=== PATIENT | female | born 1935 | race Caucasian/White ===

== ENCOUNTER 2018-09-12 15:02 | Observation (INO) | payer MEDICARE, OTHER ==
[~2018-09-12] VITALS: Ht 144.8 cm; Wt 72.8 kg
--- NOTE | 2018-09-12 15:26 | ERD ---
ER Documentation Chief Complaint Chief Complaint Right Hip pain HPI The patient is a 83-year-old female, presenting to the ER because of right hip pain after she reached over the counter in her kitchen. She felt right hip pain, similar to the time that she dislocated her hip. She denies head trauma, neck pain, chest pain, dyspnea, abdominal pain, vomiting, dizzy, diarrhea. She does not smoke nor drink Medical history: CAD, atrial fibrillation, dyslipidemia, hypertension Past surgical history: Bilateral hip arthroplasty, pacemaker, right knee arthroplasty ROS All systems reviewed and are negative except as per history of present illness. Medications Home Meds Reported Medications Calcium Citrate* (Citracal*) 950 Mg Tab, 950 MG PO BID, TAB 09/12/18 Cyanocobalamin* (Vitamin B-12*) 100 Mcg Tablet, 100 MCG PO DAILY, TAB 09/12/18 Cholecalciferol* (Vitamin D3*) 1,000 Unit Tablet, 1000 UNIT PO DAILY, TAB 09/12/18 Estradiol* (Estrace* Vag) 0.01%-42.5GM Vaginal Cream..g., 1 APPLIC VAG MON AND FRI, TUB 09/12/18 Metoprolol Succinate* (Toprol XL*) 25 Mg Tab.sr.24h, 25 MG PO BID, #30 TAB 09/12/18 Digoxin* (Digitek*) 125 Mcg Tablet, 0.125 MG PO DAILY, TAB 09/12/18 Atorvastatin* (Atorvastatin*) 40 Mg Tablet, 40 MG PO ALTERNATING DAYS, #30 TAB 09/12/18 Atorvastatin Calcium* (Atorvastatin Calcium*) 20 Mg Tablet, 20 MG PO ALTERNATING DAYS, #30 TAB 09/12/18 Irbesartan* (Irbesartan*) 75 Mg Tablet, 75 MG PO DAILY, TAB 09/12/18 Warfarin Sodium* (Coumadin*) 2.5 Mg Tablet, 2.5 MG PO SUN,E,WED,THUR,SAT, TAB 09/12/18 Warfarin Sodium* (Coumadin*) 2 Mg Tablet, 2 MG PO MON AND FRI, TAB 09/12/18 Allergies Allergies: Coded Allergies: Penicillins (Verified Allergy, Mild, 09/12/18) Sulfa (Sulfonamide Antibiotics) (Verified Allergy, Mild, 09/12/18) Physical Exam Vitals Vital Signs Date Temp Pulse Resp B/P (MAP) Pulse Ox O2 O2 Flow FiO2 Time Delivery Rate 09/12/18 74 20 185/55 99 Room Air 18:53 (98) 09/12/18 98.2 71 22 162/56 100 Nasal 4.0 17:45 (91) Cannula 09/12/18 98.2 71 20 168/79 100 Nasal 4.0 17:42 (108) Cannula 09/12/18 98.2 70 21 197/79 100 Nasal 4.0 17:39 (118) Cannula 09/12/18 98.2 74 16 187/68 100 Nasal 4.0 17:36 (107) Cannula 09/12/18 100 4.0 17:33 09/12/18 98.2 75 18 187/60 100 Nasal 4.0 17:33 (102) Cannula 09/12/18 98.0 75 20 120/89 98 15:26 (99) Physical Exam Const: No acute distress. Head: Atraumatic. Eyes: Normal Conjunctiva. ENT: Normal External Ears, Nose and Mouth. Neck: Full range of motion. No meningismus. Resp: Clear to auscultation bilaterally. Cardio: Regular rate and rhythm. Abd: Soft, non distended, normal bowel sounds, non tender. Skin: No petechiae or rashes. Back: No midline or flank tenderness. Ext: Moderate right hip tenderness, no skin violation, palpable distal pulses Neur: Awake and alert. No focal deficit Psych: Normal Mood and Affect. Results 24 hrs Current Medications Medications Dose Sig/Fazal Start Time Status Last (Trade) Ordered Route PRN Stop Time Admin Dose Reason Admin Propofol 200 mg ONCE ONCE 09/12/18 DC (Diprivan) IV 17:30 09/12/18 17:31 Procedures/[place] [address] Radiology Main Line: [phone] DIAGNOSTIC IMAGING REPORT Patient: SAMANTHA CARRASCO : 1935 Age: 83 Sex: F MR #: [id number] DOS: 09/12/181803 Ordering MD: SHAYNA HARLEY MD Location: E/R Room/Bed: PROCEDURE: XR Right Hip. CLINICAL INDICATION: Right hip pain. Postop. TECHNIQUE: Two views. Frontal and lateral. COMPARISON: Prior study done earlier the same day. FINDINGS: There is a right hip total arthroplasty. Previously noted superior dislocation of the femoral head component has been satisfactorily reduced. The soft tissues are normal. IMPRESSION: 1. Previously noted dislocation has been satisfactorily reduced. RPTAT: QQ .Ed Shearer MD, Date Time Electronically viewed and signed by .Ed Shearer MD, on 09/12/2018 18:30 .R/ CC: SHAYNA HARLEY MD [id number] [place] [address] Radiology Main Line: [phone] DIAGNOSTIC IMAGING REPORT Patient: SAMANTHA CARRASCO : 1935 Age: 83 Sex: F MR #: [id number] DOS: 09/12/18 1536 Ordering MD: SHAYNA HARLEY MD Location: E/R Room/Bed: PROCEDURE: XR Hip. CLINICAL INDICATION: pain TECHNIQUE: AP and frog lateral views of the right hip were performed. COMPARISON: CR HIP 02/12/2015 FINDINGS: Superior dislocation of the femoral component of the hip arthroplasty relative to the acetabular cup. No periprosthetic fracture detected. Moderate soft tissue swelling. Diffuse osteopenia. IMPRESSION: Superior dislocation of the femoral component relative to the acetabular cup of right hip arthroplasty. RPTAT:AAJJ Physician Sol Date Time Electronically viewed and signed by Physician Sol on 09/12/2018 16:47 RF/ CC: SHAYNA HARLEY MD [id number] MEDICAL MAKING DECISION: The patient is an 83-year-old female, presenting with recurrent dislocation of the right hip, it was reduced with any difficulty Hip X-ray 2V Interpreted by me: Bones: Rt hip Joints: Dislocation of the hip joint Foreign body: None Procedural Sedation: Pre-assessment performed. See preceding complete history and physical for details. Time out performed. See sedation documentation for details. Medication(s): Propofol 20 mv x3 about 2-3 min apart Complications: No hypoxic or apneic events Recovered without incident. Greater than 15 minutes of face to face time included in sedation and recovery. Hip Reduction by me: Anesthesia: Propofol Location: Rt hip Technique: ain Omar Results: Religious of normal anatomic positioning and tactile click Compl: Neurovascularly intact post procedure. Post-reduction X-ray elbow 2V Interpreted by me: Bones: Right hip Joints: Relocation of previously noted dislocation of the humeroulnar joint Foreign body: None Departure Diagnosis: Primary Impression: Hip dislocation, right Condition: Good Comments She was treated with a knee immobilizer I discussed the findings with the patient. I advised the patient to follow-up with the orthopedist physician in about 1-2 days, sooner if needed and return if any concern. Disclaimer: Inadvertent spelling and grammatical errors are likely due to EHR/dictation software use and do not reflect on the overall quality of patient care. Also, please note that the electronic time recorded on this note does not necessarily reflect the actual time of the patient encounter. SHAYNA HARLEY MD Sep 12, 2018 15:26
[2018-09-12] MEDS ORDERED: WARF2TAB PO (16:33)
[2018-09-12] MEDS ORDERED: WARF2.5T PO (16:33)
[2018-09-12] MEDS ORDERED: IRBE75TA8 PO (16:34)
[2018-09-12] MEDS ORDERED: ATOR40TA68 PO (16:35)
[2018-09-12] MEDS ORDERED: ATOR20TA38 PO (16:35)
[2018-09-12] MEDS ORDERED: DIGO125T PO (16:35)
[2018-09-12] MEDS ORDERED: EST42.5C VAG (16:36)
[2018-09-12] MEDS ORDERED: METO-335 PO (16:36)
[2018-09-12] MEDS ORDERED: CYAN100T PO (16:37)
[2018-09-12] MEDS ORDERED: CHOL100062 PO (16:37)
[2018-09-12] MEDS ORDERED: CITRACAL PO (16:37)
[2018-09-12] MEDS ORDERED: PROPOFOL 200 MG INJ IV ONE (17:30)
[2018-09-12] MEDS ORDERED: ACET325T33 PO (20:17)
[2018-09-12] MEDS ORDERED: METOPROLOL (XL) 25 MG TAB PO ONE (20:30)
[2018-09-12] MEDS ORDERED: NICARDipine HCL 30 MG CAPSULE PO ONE (21:30)
[2018-09-12] MEDS ORDERED: ONDANSETRON 4 MG INJ IV PRN (23:00)
[2018-09-12] MEDS ORDERED: ACETAMINOPHEN 325 MG TAB PO PRN (23:00)
--- NOTE | 2018-09-12 23:52 | HP ---
Date/Time of Note Date/Time of Note DATE: 09/12/18 TIME: 23:52 Assessment/Plan VTE Prophylaxis Pharmacological prophylaxis: heparin Lines/Catheters IV Catheter Type (from Nrsg): Peripheral IV Assessment/Plan Assessment/Plan 1. Right hip dislocation, status post fall: Successfully reduced in ER. Patient with history of bilateral hip replacement and right knee surgery -PT eval -Pain meds as needed 2. Hypertensive urgency: BP better controlled -Adjust antihypertensives as needed 3. Atrial fibrillation: Rate controlled -Patient on beta-rina, digoxin and Coumadin at home 4. Status post pacemaker: No acute issue 5. Chronic left shoulder pain. Patient with a history of arthritis. Follow-up x-ray of the shoulder Result Diagram: 09/12/18214109/12/182141 Results 24hrs Laboratory Tests Test 09/12/18 21:42 White Blood Count 10.2 Red Blood Count 4.37 Hemoglobin 12.9 Hematocrit 41.0 Mean Corpuscular Volume 93.8 Mean Corpuscular Hemoglobin 29.5 Mean Corpuscular Hemoglobin Concent 31.5 L Red Cell Distribution Width 13.2 Platelet Count 204 Mean Platelet Volume 9.3 Immature Granulocytes % 0.900 H Neutrophils % 77.7 H Lymphocytes % 11.5 L Monocytes % 9.0 Eosinophils % 0.4 Basophils % 0.5 Nucleated Red Blood Cells % 0.0 Immature Granulocytes # 0.090 H Neutrophils # 7.9 H Lymphocytes # 1.2 Monocytes # 0.9 Eosinophils # 0.0 Basophils # 0.1 Nucleated Red Blood Cells # 0.0 Sodium Level 141 Potassium Level 4.5 Chloride Level 104 Carbon Dioxide Level 28 Anion Gap 9 Blood Urea Nitrogen 17 Creatinine 0.58 Est Glomerular Filtrat Rate mL/min Glucose Level 107 Calcium Level 9.1 HPI/ROS Admit Date/Time Admit Date/Time Hx of Present Illness This is an 83-year-old female with a history of hypertension, atrial fibrillation, pacemaker and bilateral hip replacement and right knee surgery who presented to the ER complaining of right hip pain. She said she was putting something back and the refrigerator when she felt her right hip popping out. That resulted in her falling down. When she presented to the ER, was found to have a dislocated hip which was successfully reduced. Plan was for the patient to be discharged from the ER, however blood pressure at that moment became elevated with systolic of almost 200. As such, transports refused to take patient. Patient also became anxious and stated that she did not want to go home and expressed desire to be admitted. She said she lives with her roommate who will be unable to care for her if she is to be discharged now. Her daughter is flying from [place] and will be here today. She said her daughter would be able to take care of her and that she would like to be discharged home. PMH/Family/Social Past Medical History Medical History: other (See HPI) Medications Current Medications Ondansetron HCl (Zofran Inj) 4 mg BRIDGE ORDER PRN IV NAUSEA/VOMITING; Start 09/12/18 at 23:00; Stop 09/13/18 at 22:59 Acetaminophen (Tylenol Tab) 650 mg ER BRIDGE PRN PO .MILD PAIN 1-3 OR TEMP; Start 09/12/18 at 23:00; Stop 09/13/18 at 22:59 Coded Allergies: Penicillins (Verified Allergy, Mild, 09/12/18) Sulfa (Sulfonamide Antibiotics) (Verified Allergy, Mild, 09/12/18) Past Surgical History Past Surgical Hx: other (HPI) Family History Significant Family History: no pertinent family hx Social History Alcohol Use: none Smoking Status: Never smoker Drug Use: none Exam/Review of Systems Vital Signs Vitals Vital Signs Date Temp Pulse Resp B/P (MAP) Pulse Ox O2 O2 Flow FiO2 Time Delivery Rate 09/12/18 76 13 139/49 93 Room Air 23:24 (79) 09/12/18 98.2 4.0 17:45 Exam Constitutional: other (Patient appears stable with no acute distress) Head: normocephalic, atraumatic Eyes: EOMI, PERRL Respiratory: clear to auscultation, normal air movement Cardiovascular: regular rate and rhythm Gastrointestinal: soft Extremities: other (No pain elicited on palpation of the right hip. Minimal pain elicited with movement of the left arm at the shoulder) KATH HAIRSTON MD Sep 12, 2018 23:52
[2018-09-13] MEDS ORDERED: NACL 0.9% 3 ML SYG IV SCH
[2018-09-13] MEDS ORDERED: ALBUTEROL/IPRATROPIUM (NEB) 3 ML AMP HHN PRN
[2018-09-13] MEDS ORDERED: ONDANSETRON 4 MG INJ IV PRN
[2018-09-13] MEDS ORDERED: ACETAMINOPHEN 325 MG TAB PO PRN
[2018-09-13] MEDS ORDERED: HYDROCODONE/APAP (5/325) TAB PO PRN ×2
[2018-09-13 01:07] VITALS: Ht 144.8 cm; Wt 72.8 kg
[2018-09-13] MEDS: METOPROLOL (XL) 25 MG TAB PO SCH ×3 (01:52→20:30)
[2018-09-13 02:10] VITALS: BP 150/67; PULSE 70; RESP 18
[2018-09-13] MEDS: ACETAMINOPHEN 325 MG TAB PO PRN ×3 (02:55→19:28)
[2018-09-13 07:49] VITALS: BP 144/66; PULSE 70; RESP 16
[2018-09-13] MEDS: CHOLECALCIFEROL 1,000 UNIT TAB PO SCH (08:21)
[2018-09-13] MEDS: LOSARTAN 25 MG TAB PO SCH (08:21)
[2018-09-13] MEDS: CYANOCOBALAMIN 100 MCG TAB PO SCH (11:22)
[2018-09-13] MEDS: CALCIUM CARBONATE 1.25 GM TAB PO SCH ×2 (11:23→20:30)
--- NOTE | 2018-09-13 13:40 | CONS ---
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 Consultation Date/Type/Reason Admit Date/Time Date/Time of Note DATE: 09/13/18 TIME: 13:34 Hx of Present Illness Is a very pleasant 83-year-old female who took a non-syncopal fall on the day of admission striking her right hip and dislocating it. Patient states she has had bilateral knee replacements in the past and she occasionally has problems with falling to the right. There was no loss of consciousness dizziness type lability disorientation is brought to the emergency room at [facility] in her right hip was reduced. Complained of pain afterwards and unable to ambulate without severe pain requested admission. Once again patient did not have a syncopal episode there was no vertigo. Other comorbid medical problems include atrial fibrillation on beta-blockers digoxin and Coumadin history of hypertensive urgency that is post pacemaker placement and bilateral chronic shoulder pain left greater than right. She states she takes only Tylenol for her left shoulder pain. Constitutional: No no complaints, No improved, No chills, No diaphoresis, No disoriented, No febrile, No poor po, No requiring IVF, No requiring O2, No other Eyes: No no complaints, No pain, No discharge, No redness, No visual change, No other ENT: No no complaints, No bleeding, No pain, No congestion, No discharge, No dysphagia, No sore throat, No other Respiratory: No no complaints, No pain, No cough, No pleuritic pain, No shor tness of breath, No sputum, No wheezing, No other Cardiovascular: No no complaints, No chest pain, No edema, No lightheadedness, No orthopenea, No palpitations, No paroxysmal nocturnal dyspnea, No other Gastrointestinal: No no complaints, No pain, No blood, No constipation, No decreased appetite, No diarrhea, No flatus, No nausea, No passing stool, No vo miting, No other Genitourinary: other (Frequency without dysuria) Musculoskeletal: other (Refer to history of present illness) Neurologic: no complaints Past Medical History Medical History: high cholesterol, hypertension, other (Chronic atrial fibrillation) Home Meds Active Scripts Acetaminophen* (Tylenol*) 325 Mg Tablet, 2 TAB PO Q6 PRN for PAIN AND OR ELEVATED TEMP, #20 TAB Prov:SHAYNA HARLEY MD 09/12/18 Reported Medications Calcium Citrate* (Citracal*) 950 Mg Tab, 950 MG PO BID, TAB 09/12/18 Cyanocobalamin* (Vitamin B-12*) 100 Mcg Tablet, 100 MCG PO DAILY, TAB 09/12/18 Cholecalciferol* (Vitamin D3*) 1,000 Unit Tablet, 1000 UNIT PO DAILY, TAB 09/12/18 Estradiol* (Estrace* Vag) 0.01%-42.5GM Vaginal Cream..g., 1 APPLIC VAG MON AND TUE, TUB 09/12/18 Metoprolol Succinate* (Toprol XL*) 25 Mg Tab.sr.24h, 25 MG PO BID, #30 TAB 09/12/18 Digoxin* (Digitek*) 125 Mcg Tablet, 0.125 MG PO DAILY, TAB 09/12/18 Atorvastatin* (Atorvastatin*) 40 Mg Tablet, 40 MG PO ALTERNATING DAYS, #30 TAB 09/12/18 Atorvastatin Calcium* (Atorvastatin Calcium*) 20 Mg Tablet, 20 MG PO ALTERNATING DAYS, #30 TAB 09/12/18 Irbesartan* (Irbesartan*) 75 Mg Tablet, 75 MG PO DAILY, TAB 09/12/18 Warfarin Sodium* (Coumadin*) 2.5 Mg Tablet, 2.5 MG PO SUN,TUE,WED,THUR,SAT, TAB 09/12/18 Warfarin Sodium* (Coumadin*) 2 Mg Tablet, 2 MG PO MON AND FRI, TAB 09/12/18 Medications Current Medications Ondansetron HCl (Zofran Inj) 4 mg BRIDGE ORDER PRN IV NAUSEA/VOMITING; Start 09/12/18 at 23:00; Stop 09/13/18 at 22:59 Acetaminophen (Tylenol Tab) 650 mg ER BRIDGE PRN PO .MILD PAIN 1-3 OR TEMP; Start 09/12/18 at 23:00; Stop 09/13/18 at 22:59 IV Flush (NS 3 ml) 3 ml PER PROTOCOL IV ; Start 09/13/18 at 00:00 Ondansetron HCl (Zofran Inj) 4 mg Q6H PRN IV NAUSEA/VOMITING; Start 09/13/18 at 00:00 Acetaminophen (Tylenol Tab) 650 mg Q6H PRN PO .PAIN 1-3 OR TEMP Last administered on 09/13/18at 02:55; Admin Dose 650 MG; Start 09/13/18 at 00:00 Acetaminophen/ Hydrocodone Bitart (Lithia (5/325)) 1 tab Q6H PRN PO .MOD PAIN 4- 6; Start 09/13/18 at 00:00 Acetaminophen/ Hydrocodone Bitart (Lithia (5/325)) 2 tab Q6H PRN PO .SEVERE PAIN 7-10; Start 09/13/18 at 00:00 Albuterol/ Ipratropium (Duoneb) 3 ml Q2H RESP THERAPY PRN HHN SHORTNESS OF BREATH; Start 09/13/18 at 00:00 Atorvastatin Calcium (Lipitor) 20 mg Q48H PO ; Start 09/13/18 at 21:00 Cholecalciferol (Vitamin D) 1,000 unit DAILY PO Last administered on 09/13/18 08:21; Admin Dose 1,000 UNIT; Start 09/13/18 at 09:00 Cyanocobalamin (Vitamin B12) 100 mcg DAILY PO Last administered on 09/13/18at 11:22; Admin Dose 100 MCG; Start 09/13/18 at 09:00 Digoxin (Digoxin) 0.125 mg DAILY@1300 PO ; Start 09/13/18 at 13:00 Metoprolol Succinate (Toprol Xl) 25 mg BID PO Last administered on 09/13/18 08:21; Admin Dose 25 MG; Start 09/13/18 at 00:00 Warfarin Sodium (Coumadin) 2 mg DAILY@1700 PO ; Start 09/13/18 at 17:00 Calcium Carbonate (Oyster Shell Calcium) 1.25 gm BID PO Last administered on 09/13/18 11:23; Admin Dose 1.25 GM; Start 09/13/18 at 09:00 Losartan Potassium (Cozaar) 25 mg DAILY PO Last administered on 09/13/18 08:21; Admin Dose 25 MG; Start 09/13/18 at 09:00 Allergies: Coded Allergies: Penicillins (Verified Allergy, Mild, 09/12/18) Sulfa (Sulfonamide Antibiotics) (Verified Allergy, Mild, 09/12/18) Past Surgical History Past Surgical Hx: other (Bilateral knee replacements) Social History Alcohol Use: none Smoking Status: Never smoker Drug Use: none Exam/Review of Systems Exam Vitals Vital Signs Date Temp Pulse Resp B/P (MAP) Pulse Ox O2 O2 Flow FiO2 Time Delivery Rate 09/13/18 98.4 70 16 144/66 95 07:49 (92) 09/13/18 Room Air 00:23 09/12/18 4.0 17:45 Intake and Output 09/12/18 09/12/18 09/13/18 1414:59 22:59 06:59 IntakeIntake Total 240 ml BalanceBalance 240 ml Constitutional: alert, oriented, well developed Musculoskeletal: other (Of motion in bilateral lower extremities intact range of motion bilateral upper extremities flexion extension internal and external rotations intact patient is able to AB and adduction both arms fully 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 in both hands are completely within normal limits 5/5 no tenderness at her couple tunnel bilateral motor function normal bilateral flexion both arms sensory grossly intact) Results Result Diagram: 09/13/18 0458 09/13/18 0458 Results 24hrs Laboratory Tests Test 09/12/18 21:42 09/13/18 04:58 White Blood Count 10.2 9.9 Red Blood Count 4.37 4.22 Hemoglobin 12.9 12.6 Hematocrit 41.0 39.1 Mean Corpuscular Volume 93.8 92.7 Mean Corpuscular Hemoglobin 29.5 29.9 Mean Corpuscular Hemoglobin Concent 31.5 L 32.2 Red Cell Distribution Width 13.2 13.4 Platelet Count 204 196 Mean Platelet Volume 9.3 9.4 Immature Granulocytes % 0.900 H 0.700 H Neutrophils % 77.7 H 73.3 Lymphocytes % 11.5 L 13.8 L Monocytes % 9.0 11.1 H Eosinophils % 0.4 0.5 Basophils % 0.5 0.6 Nucleated Red Blood Cells % 0.0 0.0 Immature Granulocytes # 0.090 H 0.070 H Neutrophils # 7.9 H 7.3 Lymphocytes # 1.2 1.4 Monocytes # 0.9 1.1 H Eosinophils # 0.0 0.1 Basophils # 0.1 0.1 Nucleated Red Blood Cells # 0.0 0.0 Sodium Level 141 141 Potassium Level 4.5 4.3 Chloride Level 104 105 Carbon Dioxide Level 28 28 Anion Gap 9 8 Blood Urea Nitrogen 17 18 Creatinine 0.58 0.64 Est Glomerular Filtrat Rate mL/min Glucose Level 107 105 Calcium Level 9.1 9.0 Prothrombin Time 21.1 H Prothrombin Time Ratio 1.6 INR International Normalized Ratio 1.81 Activated Partial Thromboplast Time 35.4 H Phosphorus Level 3.8 Magnesium Level 2.2 Total Bilirubin 0.6 Direct Bilirubin 0.00 Indirect Bilirubin 0.6 Aspartate Amino Transf (AST/SGOT) 42 Alanine Aminotransferase (ALT/SGPT) 32 Alkaline Phosphatase 59 Total Protein 6.4 Albumin 3.6 Globulin 2.80 Albumin/Globulin Ratio 1.28 Triglycerides Level 165 H Cholesterol Level 122 LDL Cholesterol, Calculated 52 HDL Cholesterol 37 Cholesterol/HDL Ratio 3.2 Medications Medication Current Medications Ondansetron HCl (Zofran Inj) 4 mg BRIDGE ORDER PRN IV NAUSEA/VOMITING; Start 09/12/18 at 23:00; Stop 09/13/18 at 22:59 Acetaminophen (Tylenol Tab) 650 mg ER BRIDGE PRN PO .MILD PAIN 1-3 OR TEMP; Start 09/12/18 at 23:00; Stop 09/13/18 at 22:59 IV Flush (NS 3 ml) 3 ml PER PROTOCOL IV ; Start 09/13/18 at 00:00 Ondansetron HCl (Zofran Inj) 4 mg Q6H PRN IV NAUSEA/VOMITING; Start 09/13/18 at 00:00 Acetaminophen (Tylenol Tab) 650 mg Q6H PRN PO .PAIN 1-3 OR TEMP Last administered on 09/13/18at 02:55; Admin Dose 650 MG; Start 09/13/18 at 00:00 Acetaminophen/ Hydrocodone Bitart (Lithia (5/325)) 1 tab Q6H PRN PO .MOD PAIN 4- 6; Start 09/13/18 at 00:00 Acetaminophen/ Hydrocodone Bitart (Lithia (5/325)) 2 tab Q6H PRN PO .SEVERE PAIN 7-10; Start 09/13/18 at 00:00 Albuterol/ Ipratropium (Duoneb) 3 ml Q2H RESP THERAPY PRN HHN SHORTNESS OF BREATH; Start 09/13/18 at 00:00 Atorvastatin Calcium (Lipitor) 20 mg Q48H PO ; Start 09/13/18 at 21:00 Cholecalciferol (Vitamin D) 1,000 unit DAILY PO Last administered on 09/13/18 08:21; Admin Dose 1,000 UNIT; Start 09/13/18 at 09:00 Cyanocobalamin (Vitamin B12) 100 mcg DAILY PO Last administered on 09/13/18 11 :22; Admin Dose 100 MCG; Start 09/13/18 at 09:00 Digoxin (Digoxin) 0.125 mg DAILY@1300 PO ; Start 09/13/18 at 13:00 Metoprolol Succinate (Toprol Xl) 25 mg BID PO Last administered on 09/13/18 08:21; Admin Dose 25 MG; Start 09/13/18 at 00:00 Warfarin Sodium (Coumadin) 2 mg DAILY@1700 PO ; Start 09/13/18 at 17:00 Calcium Carbonate (Oyster Shell Calcium) 1.25 gm BID PO Last administered on 09/13/18 11:23; Admin Dose 1.25 GM; Start 09/13/18 at 09:00 Losartan Potassium (Cozaar) 25 mg DAILY PO Last administered on 09/13/18 08:21; Admin Dose 25 MG; Start 09/13/18 at 09:00 EBER LOPEZ Sep 13, 2018 13:39
--- NOTE | 2018-09-13 13:57 | PN ---
Date/Time of Note Date/Time of Note DATE: 09/13/18 TIME: 13:51 Assessment/Plan VTE Prophylaxis Risk score (from Ns)>0 risk: 5 SCD applied (from Ns): Yes Pharmacological prophylaxis: warfarin tx Lines/Catheters IV Catheter Type (from Nrs): Peripheral IV Assessment/Plan Assessment/Plan 1. Recurrent right prosthetic hip dislocation, s/p close reduction in ER, PT, pain control, patient wants to follow up with Dr. Jordan in [facility] for further surgery after discharge 2. Hypertension, better controlled 3. Atrial fibrillation: Rate controlled, on coumadin 4. Status post pacemaker: No acute issue 5. Chronic left shoulder pain. Patient with a history of arthritis. Follow-up x-ray of the shoulder 6. H/o bilateral hip and right knee replacement Result Diagram: 09/13/18 0458 09/13/18 0458 Results 24hrs Laboratory Tests Test 09/12/18 21:42 09/13/18 04:58 White Blood Count 10.2 9.9 Red Blood Count 4.37 4.22 Hemoglobin 12.9 12.6 Hematocrit 41.0 39.1 Mean Corpuscular Volume 93.8 92.7 Mean Corpuscular Hemoglobin 29.5 29.9 Mean Corpuscular Hemoglobin Concent 31.5 L 32.2 Red Cell Distribution Width 13.2 13.4 Platelet Count 204 196 Mean Platelet Volume 9.3 9.4 Immature Granulocytes % 0.900 H 0.700 H Neutrophils % 77.7 H 73.3 Lymphocytes % 11.5 L 13.8 L Monocytes % 9.0 11.1 H Eosinophils % 0.4 0.5 Basophils % 0.5 0.6 Nucleated Red Blood Cells % 0.0 0.0 Immature Granulocytes # 0.090 H 0.070 H Neutrophils # 7.9 H 7.3 Lymphocytes # 1.2 1.4 Monocytes # 0.9 1.1 H Eosinophils # 0.0 0.1 Basophils # 0.1 0.1 Nucleated Red Blood Cells # 0.0 0.0 Sodium Level 141 141 Potassium Level 4.5 4.3 Chloride Level 104 105 Carbon Dioxide Level 28 28 Anion Gap 9 8 Blood Urea Nitrogen 17 18 Creatinine 0.58 0.64 Est Glomerular Filtrat Rate mL/min Glucose Level 107 105 Calcium Level 9.1 9.0 Prothrombin Time 21.1 H Prothrombin Time Ratio 1.6 INR International Normalized Ratio 1.81 Activated Partial Thromboplast Time 35.4 H Phosphorus Level 3.8 Magnesium Level 2.2 Total Bilirubin 0.6 Direct Bilirubin 0.00 Indirect Bilirubin 0.6 Aspartate Amino Transf (AST/SGOT) 42 Alanine Aminotransferase (ALT/SGPT) 32 Alkaline Phosphatase 59 Total Protein 6.4 Albumin 3.6 Globulin 2.80 Albumin/Globulin Ratio 1.28 Triglycerides Level 165 H Cholesterol Level 122 LDL Cholesterol, Calculated 52 HDL Cholesterol 37 Cholesterol/HDL Ratio 3.2 Subjective 24 Hr Interval Summary Free Text/Dictation weak, awaiting for PT to walk her Exam/Review of Systems Exam Vitals Vital Signs Date Temp Pulse Resp B/P (MAP) Pulse Ox O2 O2 Flow FiO2 Time Delivery Rate 09/13/18 98.4 70 16 144/66 95 07:49 (92) 09/13/18 Room Air 00:23 09/12/18 4.0 17:45 Intake and Output 09/12/18 09/12/18 09/13/18 1515:00 23:00 07:00 IntakeIntake Total 240 ml BalanceBalance 240 ml Constitutional: alert, oriented, well developed, obese Psych: no complaints, nl mood/affect Head: normocephalic, atraumatic Eyes: nl conjunctiva, EOMI, nl lids ENMT: nl external ears & nose, nl lips & teeth, nl nasal mucosa & septum Neck: supple, non-tender Respiratory: clear to auscultation, normal air movement; No congested cough, No crackles/rales, No diminished breath sounds, No intercostal retraction, No labored breathing, No respirations, No tactile fremitus, No wheezing, No other Cardiovascular: regular rate and rhythm, nl pulses; No bruits, No diastolic murmur, No edema, No gallop, No irregular rhythm, No jugular venous distention (JVD), No murmurs/extra sounds, No rub, No systolic murmur, No S3, No S4, No other Gastrointestinal: soft, nl liver, spleen, non-tender Extremities: normal pulses; No calf tenderness, No cyanosis, No clubbing, No edema, No pitting pedal edema, No palpable cord, No tenderness, No other Neurological: ELECTRICIAN WIRING II-XII intact, nl mental status, nl speech, nl strength Results Results 24hrs Laboratory Tests Test 09/12/18 21:42 09/13/18 04:58 White Blood Count 10.2 9.9 Red Blood Count 4.37 4.22 Hemoglobin 12.9 12.6 Hematocrit 41.0 39.1 Mean Corpuscular Volume 93.8 92.7 Mean Corpuscular Hemoglobin 29.5 29.9 Mean Corpuscular Hemoglobin Concent 31.5 L 32.2 Red Cell Distribution Width 13.2 13.4 Platelet Count 204 196 Mean Platelet Volume 9.3 9.4 Immature Granulocytes % 0.900 H 0.700 H Neutrophils % 77.7 H 73.3 Lymphocytes % 11.5 L 13.8 L Monocytes % 9.0 11.1 H Eosinophils % 0.4 0.5 Basophils % 0.5 0.6 Nucleated Red Blood Cells % 0.0 0.0 Immature Granulocytes # 0.090 H 0.070 H Neutrophils # 7.9 H 7.3 Lymphocytes # 1.2 1.4 Monocytes # 0.9 1.1 H Eosinophils # 0.0 0.1 Basophils # 0.1 0.1 Nucleated Red Blood Cells # 0.0 0.0 Sodium Level 141 141 Potassium Level 4.5 4.3 Chloride Level 104 105 Carbon Dioxide Level 28 28 Anion Gap 9 8 Blood Urea Nitrogen 17 18 Creatinine 0.58 0.64 Est Glomerular Filtrat Rate mL/min Glucose Level 107 105 Calcium Level 9.1 9.0 Prothrombin Time 21.1 H Prothrombin Time Ratio 1.6 INR International Normalized Ratio 1.81 Activated Partial Thromboplast Time 35.4 H Phosphorus Level 3.8 Magnesium Level 2.2 Total Bilirubin 0.6 Direct Bilirubin 0.00 Indirect Bilirubin 0.6 Aspartate Amino Transf (AST/SGOT) 42 Alanine Aminotransferase (ALT/SGPT) 32 Alkaline Phosphatase 59 Total Protein 6.4 Albumin 3.6 Globulin 2.80 Albumin/Globulin Ratio 1.28 Triglycerides Level 165 H Cholesterol Level 122 LDL Cholesterol, Calculated 52 HDL Cholesterol 37 Cholesterol/HDL Ratio 3.2 Medications Medication Current Medications IV Flush (NS 3 ml) 3 ml PER PROTOCOL IV ; Start 09/13/18 at 00:00 Ondansetron HCl (Zofran Inj) 4 mg Q6H PRN IV NAUSEA/VOMITING; Start 09/13/18 at 00:00 Acetaminophen (Tylenol Tab) 650 mg Q6H PRN PO .PAIN 1-3 OR TEMP Last administered on 3/13/19at 13:45; Admin Dose 650 MG; Start 09/13/18 at 00:00 Albuterol/ Ipratropium (Duoneb) 3 ml Q2H RESP THERAPY PRN HHN SHORTNESS OF BREATH; Start 09/13/18 at 00:00 Atorvastatin Calcium (Lipitor) 20 mg Q48H PO ; Start 09/13/18 at 21:00 Cholecalciferol (Vitamin D) 1,000 unit DAILY PO Last administered on 09/13/18 08:21; Admin Dose 1,000 UNIT; Start 09/13/18 at 09:00 Cyanocobalamin (Vitamin B12) 100 mcg DAILY PO Last administered on 09/13/18 11:22; Admin Dose 100 MCG; Start 09/13/18 at 09:00 Digoxin (Digoxin) 0.125 mg DAILY@1300 PO ; Start 09/13/18 at 13:00 Metoprolol Succinate (Toprol Xl) 25 mg BID PO Last administered on 09/13/18 08:21; Admin Dose 25 MG; Start 09/13/18 at 00:00 Warfarin Sodium (Coumadin) 2 mg DAILY@1700 PO ; Start 09/13/18 at 17:00 Calcium Carbonate (Oyster Shell Calcium) 1.25 gm BID PO Last administered on 09/13/18 11:23; Admin Dose 1.25 GM; Start 09/13/18 at 09:00 Losartan Potassium (Cozaar) 25 mg DAILY PO Last administered on 09/13/18 08:21; Admin Dose 25 MG; Start 09/13/18 at 09:00 HANNAH URENA MD Sep 13, 2018 13:57
[2018-09-13 15:02] VITALS: BP 152/65; PULSE 70; RESP 16
[2018-09-13] MEDS: DIGOXIN 0.125 MG TAB PO SCH (16:00)
[2018-09-13] MEDS ORDERED: WARFARIN 2 MG TAB PO SCH (17:00)
[2018-09-13 19:44] VITALS: BP 154/67; PULSE 70; RESP 18
[2018-09-13] MEDS ORDERED: ATORVASTATIN 20 MG TAB PO SCH (21:00)
[2018-09-14] MEDS: ACETAMINOPHEN 325 MG TAB PO PRN (00:55)
[2018-09-14 01:21] VITALS: BP 147/67; PULSE 70; RESP 18
[2018-09-14 07:56] VITALS: BP 152/65; PULSE 72; RESP 18
[2018-09-14] MEDS: CYANOCOBALAMIN 100 MCG TAB PO SCH (08:34)
[2018-09-14] MEDS: CHOLECALCIFEROL 1,000 UNIT TAB PO SCH (08:34)
[2018-09-14] MEDS: METOPROLOL (XL) 25 MG TAB PO SCH (08:35)
[2018-09-14] MEDS: LOSARTAN 25 MG TAB PO SCH (08:35)
[2018-09-14] MEDS: CALCIUM CARBONATE 1.25 GM TAB PO SCH (08:35)
[2018-09-14] MEDS: DIGOXIN 0.125 MG TAB PO SCH (12:57)
--- NOTE | 2018-09-14 14:15 | DS ---
Date/Time of Note Date/Time of Note DATE: 09/14/18 TIME: 14:11 Discharge Summary Admission/Discharge Info Admit Date/Time Sep 12, 2018 at 22:57 Discharge Date/Time Discharge Diagnosis 1. Recurrent right prosthetic hip dislocation, s/p close reduction, stable, patient wants to follow up with Dr. Jordan in [facility] for further surgery after discharge 2. Hypertension, better controlled 3. Atrial fibrillation: Rate controlled, on coumadin 4. Status post pacemaker: No acute issue 5. Chronic left shoulder pain, follow up with ortho 6. H/o bilateral hip and right knee replacement Patient Condition: Stable Hospital Course This is an 83-year-old female with a history of hypertension, atrial fibrillation, pacemaker and bilateral hip replacement and right knee surgery who presented to the ER complaining of right hip pain. She said she was putting something back and the refrigerator when she felt her right hip popping out. That resulted in her falling down. When she presented to the ER, was found to have a dislocated hip which was successfully reduced. Patient will follow up with ortho outpatient. Conditions and plans are discussed with the patient and her daughter at bedside. Home Meds Active Scripts Acetaminophen* (Tylenol*) 325 Mg Tablet, 2 TAB PO Q6 PRN for PAIN AND OR ELEVATED TEMP, #20 TAB Prov:SHAYNA HARLEY MD 09/12/18 Reported Medications Calcium Citrate* (Citracal*) 950 Mg Tab, 950 MG PO BID, TAB 09/12/18 Cyanocobalamin* (Vitamin B-12*) 100 Mcg Tablet, 100 MCG PO DAILY, TAB 09/12/18 Cholecalciferol* (Vitamin D3*) 1,000 Unit Tablet, 1000 UNIT PO DAILY, TAB 09/12/18 Estradiol* (Estrace* Vag) 0.01%-42.5GM Vaginal Cream..g., 1 APPLIC VAG MON AND FRI, TUB 09/12/18 Metoprolol Succinate* (Toprol XL*) 25 Mg Tab.sr.24h, 25 MG PO BID, #30 TAB 09/12/18 Digoxin* (Digitek*) 125 Mcg Tablet, 0.125 MG PO DAILY, TAB 09/12/18 Atorvastatin* (Atorvastatin*) 40 Mg Tablet, 40 MG PO ALTERNATING DAYS, #30 TAB 09/12/18 Atorvastatin Calcium* (Atorvastatin Calcium*) 20 Mg Tablet, 20 MG PO ALTERNATING DAYS, #30 TAB 3/12/19 Irbesartan* (Irbesartan*) 75 Mg Tablet, 75 MG PO DAILY, TAB 09/12/18 Warfarin Sodium* (Coumadin*) 2.5 Mg Tablet, 2.5 MG PO SUN,TUE,WED,UR,SAT, TAB 09/12/18 Warfarin Sodium* (Coumadin*) 2 Mg Tablet, 2 MG PO MON AND FRI, TAB 09/12/18 Follow-up Plan PCP and ortho in one week Primary Care Provider Not On Staff Doctor HANNAH URENA MD Sep 14, 2018 14:15
[2018-09-15] MEDS ORDERED: LOSARTAN 50 MG TAB PO SCH (09:00)
== END 2018-09-14 15:40 | disposition home or self-care (01) ==
LOC: E/R 15:02 → 2NE 22:57 → EDBEDREQ 23:12
PROVIDERS: ADMIT Internal Medicine; ATTEND Internal Medicine
DX: T84.020A Dislocation of internal right hip prosthesis, initial encounter (principal); I10 Essential (primary) hypertension; I48.91 Unspecified atrial fibrillation; G89.29 Other chronic pain; M25.512 Pain in left shoulder; I25.10 Atherosclerotic heart disease of native coronary artery without angina pectoris; Z79.01 Long term (current) use of anticoagulants; E78.5 Hyperlipidemia, unspecified; Z95.0 Presence of cardiac pacemaker; Z96.643 Presence of artificial hip joint, bilateral; Z96.651 Presence of right artificial knee joint; W19.XXXA Unspecified fall, initial encounter
CPT/HCPCS: 27265; 73510; 80048; 80053; 80061; 83735; 84100; 85025; 85610; 85730; 93005; 94770; 97110; 97116; 97162; 97530; 99285; G0378; J3420